=== PATIENT | female | born 1950 | race Two or more races ===

== ENCOUNTER 2022-02-11 10:50 | Emergency (ER) | payer OTHER ==
[~2022-02-11] VITALS: Ht 154.9 cm; Wt 72.3 kg
[2022-02-11 11:47] VITALS: BP 141/76
[2022-02-11] MEDS ORDERED: cefTRIAXone SOD 1,000 MG VL IM ONE (12:30)
[2022-02-11] MEDS ORDERED: AMOX500T86 PO (12:38)
[2022-02-11] MEDS ORDERED: NAPR500T31 PO (12:38)
[2022-02-11] MEDS ORDERED: LIDOCAINE 1% HCL (LOCAL ANESTH.) INJ 20ML MDV ONE (12:47)
== END 2022-02-11 12:54 | disposition home or self-care (01) ==
LOC: ER 10:50
DX: S61.551A Open bite of right wrist, initial encounter (principal); L08.9 Local infection of the skin and subcutaneous tissue, unspecified; I10 Essential (primary) hypertension; E78.5 Hyperlipidemia, unspecified; Z79.2 Long term (current) use of antibiotics; Z79.899 Other long term (current) drug therapy; W55.01XA Bitten by cat, initial encounter; Y93.89 Activity, other specified; Y92.89 Other specified places as the place of occurrence of the external cause; Y99.8 Other external cause status
CPT/HCPCS: 96372; 99283; J0696; J2001